=== PATIENT | male | born 1945 | race Caucasian/White ===

== ENCOUNTER 2017-02-23 06:32 | Inpatient (IN) | payer MEDICARE, MEDICAID ==
[2017-02-23] VITALS (9 sets, daily range): BP systolic 115–158; BP diastolic 55–93
[~2017-02-23] VITALS: Ht 167.6 cm; Wt 67.1 kg
[~2017-02-23 06:32] MED LIST: ASPI-1159 PO; VALS160T2 PO
[2017-02-23] MEDS ORDERED: INSU100I3 SQ (07:34)
[2017-02-23] MEDS ORDERED: ELUX75TA PO (07:34)
[2017-02-23] MEDS ORDERED: INSLAN SQ (07:34)
[2017-02-23] MEDS ORDERED: SERT25TA74 PO (07:34)
[2017-02-23] MEDS ORDERED: [UNRECOGNIZED DRUG - CODE] PO (07:34)
[2017-02-23] MEDS ORDERED: CLOP75TA2 PO (07:34)
[2017-02-23 07:46] LABS: CHLORIDE 109 mEq/L (98-107)
[2017-02-23 07:53] LABS: CARBON DIOXIDE 23 mEq/L (21-32)
[2017-02-23] MEDS ORDERED: IODIXANOL 320MG/ML 100 ML BOTTLE IV ONE (08:22)
[2017-02-23] MEDS ORDERED: LIDOCAINE HCL 1% 20ML VIAL (Pyxis) INJ ONE (08:22)
[2017-02-23] MEDS ORDERED: HEPARIN SODIUM 1,000 UNIT/1ML VIAL IV ONE (08:25)
[2017-02-23] MEDS ORDERED: MIDAZOLAM HCL 2 MG/2 ML VIAL ONE ×2 (08:27→08:58)
[2017-02-23] MEDS ORDERED: FENTANYL CITRATE/PF 50MCG/ML 2ML VIAL ONE (08:27)
[2017-02-23] MEDS ORDERED: IOVERSOL 240MG/ML 100ML BOTTLE IV ONE (08:48)
[2017-02-23] MEDS ORDERED: ASPIRIN 325MG TABLET ONE (09:54)
[2017-02-23] MEDS ORDERED: CLOPIDOGREL 75MG TABLET ONE (09:55)
[2017-02-23] MEDS ORDERED: SODIUM CHLORIDE 0.45% 1,000 ML IV ONE (10:00)
[2017-02-23] MEDS ORDERED: ELUXADOLINE 75 MG PO SCH (10:00)
[2017-02-23] MEDS ORDERED: DEXTROSE 50% WATER 50ML SYRINGE IV PRN (10:15)
[2017-02-23] MEDS: LOSARTAN POTASSIUM 100 MG TABLET PO SCH (12:18)
[2017-02-23] MEDS: INSULIN LISPRO 100 UNITS/ML SUBCUT SCH ×3 (12:20→21:47)
[2017-02-23] MEDS: BLOOD SUGAR DIAGNOSTIC STRIP TEST SCH ×3 (12:27→21:48)
[2017-02-23 20:54] LABS: HEMATOCRIT 35.6 % (42.0-52.0); HEMOGLOBIN 12.1 g/dL (14.0-18.0)
[2017-02-23] MEDS ORDERED: ZOLPIDEM TARTRATE 5MG TABLET PO PRN (21:00)
[2017-02-23] MEDS ORDERED: INSULIN GLARGINE HUM REC ANLOG U SQ SCH (21:00)
[2017-02-23] MEDS ORDERED: INSULIN DETEMIR UD 100 UNITS/ML SYR SUBCUT SCH (22:00)
[2017-02-24] VITALS (9 sets, daily range): BP systolic 107–144; BP diastolic 58–75
[2017-02-24 06:13] LABS: BASOPHILS % 0.5 % (0.0-2.0); EOSINOPHILS % 1.8 % (0.0-5.0); HEMATOCRIT. 36.7 % (42.0-52.0); HEMOGLOBIN. 12.8 g/dL (14.0-18.0); LYMPHOCYTES % 11.1 % (20.0-50.0); MEAN CORPUSCULAR HEMOGLOBIN 30.4 pg (28.0-32.0); MEAN CORPUSCULAR VOLUME 87.2 fL (80.0-94.0); MEAN PLATELET VOLUME 9.4 fl (7.4-10.4); MONOCYTES % 6.2 % (2.0-8.0); NEUTROPHILS % 80.4 % (40.0-76.0); PLATELET 120 x1000/uL (130-400); RED BLOOD CELL COUNT 4.21 mill/uL (4.7-6.1); RED CELL DISTRIBUTION WIDTH 13.9 % (11.6-14.6)
[2017-02-24 06:33] LABS: CARBON DIOXIDE 25 mEq/L (21-32); CHLORIDE 109 mEq/L (98-107)
[2017-02-24] MEDS: INSULIN LISPRO 100 UNITS/ML SUBCUT SCH ×2 (07:20→11:44)
[2017-02-24] MEDS: BLOOD SUGAR DIAGNOSTIC STRIP TEST SCH ×2 (07:21→11:44)
[2017-02-24] MEDS ORDERED: SERTRALINE HCL 50MG TABLET PO SCH (09:00)
[2017-02-24] MEDS ORDERED: CLOPIDOGREL 75MG TABLET PO SCH (09:00)
[2017-02-24] MEDS ORDERED: MEDICATION NOT ON FORMULARY EA (Valsartan (Diovan) 1 TAB) PO SCH (09:00)
[2017-02-24] MEDS ORDERED: ASPIRIN 81MG EC TABLET PO SCH (09:00)
[2017-02-24] MEDS: LOSARTAN POTASSIUM 100 MG TABLET PO SCH (09:48)
== END 2017-02-24 13:35 | disposition home or self-care (01) | DRG 254 ==
LOC: CCL 06:32 → 3WST 06:33
PROVIDERS: ADMIT Specialist; ATTEND Specialist
PROC: 047D3DZ Dilation of Left Common Iliac Artery with Intraluminal Device, Percutaneous Approach (ICD-10-PCS; principal; 2017-02-23)
DX: E11.51 Type 2 diabetes mellitus with diabetic peripheral angiopathy without gangrene (principal); E11.22 Type 2 diabetes mellitus with diabetic chronic kidney disease; I13.10 Hypertensive heart and chronic kidney disease without heart failure, with stage 1 through stage 4 chronic kidney disease, or unspecified chronic kidney disease; E78.5 Hyperlipidemia, unspecified; E87.5 Hyperkalemia; E11.9 Type 2 diabetes mellitus without complications; I70.8 Atherosclerosis of other arteries; N18.9 Chronic kidney disease, unspecified; S30.1XXA Contusion of abdominal wall, initial encounter; Z79.4 Long term (current) use of insulin; Z88.0 Allergy status to penicillin
CPT/HCPCS: 36415; 37221; 75710; 80048; 82962; 85014; 85018; 85025; 85347; C1725; C1726; C1769; C1876; C1887; C1893; C1894; J1644; J1815; J2250; J3010; J3490; Q9967

== ENCOUNTER → 2017-07-20 | Day surgery (SDC) | payer MEDICARE, MEDICAID ==
[~2017-07-20] MED LIST changes: +AMLO5TAB4 PO; +CLOP75TA16 PO; +ELUX75TA PO; +FENTANYL CITRATE/PF 50MCG/ML 2ML VIAL ONE; +HEPARIN SODIUM 1,000 UNIT/1ML VIAL IV ONE; +INSLAN SQ; +INSU100I3 SQ; +IOHEXOL-300 100 ML BOTTLE ONE; +LIDOCAINE HCL 1% 20ML VIAL (Pyxis) INJ ONE; +MIDAZOLAM HCL 2 MG/2 ML VIAL ONE; +NICARDIPINE 100MCG/ML 10ML VIAL (CATH LAB) IV ONE; +NITROGLYCERIN 50MCG/ML 10ML VIAL (CATH LAB) IV ONE; +SERT25TA74 PO; +[UNRECOGNIZED DRUG - CODE] PO; +[UNRECOGNIZED DRUG - OTHER] EACHEYE
== END | disposition home or self-care (01) ==
LOC: CCL 08:00
PROVIDERS: ATTEND Specialist
DX: I25.10 Atherosclerotic heart disease of native coronary artery without angina pectoris (principal); I13.10 Hypertensive heart and chronic kidney disease without heart failure, with stage 1 through stage 4 chronic kidney disease, or unspecified chronic kidney disease; E11.22 Type 2 diabetes mellitus with diabetic chronic kidney disease; N18.9 Chronic kidney disease, unspecified; E87.6 Hypokalemia; Z79.4 Long term (current) use of insulin; Z79.82 Long term (current) use of aspirin; Z88.0 Allergy status to penicillin; Z98.890 Other specified postprocedural states
CPT/HCPCS: 82962; 93458; 99152; 99153; C1769; C1893; J1644; J2250; J3010; J3490; Q9967